=== PATIENT | female | born 1995 | race Caucasian/White ===

== ENCOUNTER 2023-12-28 18:34 | Emergency (ER) | payer OTHER ==
[2023-12-28 18:45] VITALS: RESP 19; TEMP 98.1; BMI 33.1
[2023-12-28] MEDS: LACTATED RINGERS SOLUTION 1000 ML INFUS.BAG IV ONE ×2 (20:00→22:31)
[2023-12-28 20:22] LABS: BASO % 0.9 % (0-2.0); EOS % 0.1 % (0-4.5); HEMATOCRIT 37.7 % (32.4-45.2); LYMPH % 9.9 % (8-40); MCH 30.1 pg (25.7-33.7); MCHC 34.5 g/dl (32.0-36.0); MEAN CELL VOLUME 87.2 fl (80-96); MEAN PLT VOLUME 8.4 fl (7.5-11.1); MONO % 4.7 % (3.8-10.2); NEUT % 84.4 % (42.8-82.8); PLATELET COUNT 306 10^3/uL (134-434); RBC 4.32 M/mm3 (3.60-5.2); WHITE BLOOD COUNT 13.4 K/mm3 (4.0-10.0)
[2023-12-28 20:34] LABS: COCAINE, UR NEGATIVE (NEGATIVE); OPIATES, URI NEGATIVE (NEGATIVE); PHENCYCLIDINE,URINE NEGATIVE (NEGATIVE); URINE BARBITURATES NEGATIVE (NEGATIVE); URINE BENZODIAZEPINES NEGATIVE (NEGATIVE)
[2023-12-28 20:35] LABS: METHADONE, UR NEGATIVE (NEGATIVE)
[2023-12-28 20:38] LABS: URINE AMPHETAMINES NEGATIVE (NEGATIVE)
[2023-12-28 20:43] LABS: EPI CELLS 6 /uL (0-25.1); HYALINE CASTS 0 /uL (0-3.1); PH,URINE 5.5 (5.0-8.0); URINE APPEARANCE CLEAR; URINE BACTERIA 63 /uL (0-1359); URINE BILIRUBIN NEGATIVE (NEGATIVE); URINE COLOR YELLOW; URINE GLUCOSE (UA) NEGATIVE (NEGATIVE); URINE KETONE NEGATIVE (NEGATIVE); URINE LEUK ESTERASE NEGATIVE (NEGATIVE); URINE NITRITE NEGATIVE (NEGATIVE); URINE PROTEIN NEGATIVE (NEGATIVE); URINE RBC 63 /uL (0-23.9); URINE UROBILINOGEN 0.2 mg/dL (0.2-1.0); URINE WBC 8 /uL (0-25.8)
[2023-12-28 20:48] LABS: POTASSIUM 3.8 mmol/L (3.5-5.1)
[2023-12-28 20:49] LABS: CALCIUM 9.2 mg/dL (8.5-10.1)
[2023-12-28 20:50] LABS: ALBUMIN 4.1 g/dl (3.4-5.0); BLOOD UREA NITROGEN 8.3 mg/dL (7-18); MAGNESIUM 1.9 mg/dL (1.8-2.4)
[2023-12-28 20:55] LABS: BILIRUBIN,TOTAL 0.3 mg/dL (0.2-1); TOT PROT 8.1 g/dl (6.4-8.2)
[2023-12-28 22:52] VITALS: BP 122/66; PULSE 110
== END 2023-12-29 00:15 | disposition home or self-care (01) ==
LOC: JERFT 18:34 → JER 18:34
PROC: 3E030GC Introduction of Other Therapeutic Substance into Peripheral Vein, Open Approach (ICD-10-PCS; principal; 2023-12-28)
DX: R00.2 Palpitations (principal); R20.0 Anesthesia of skin; F41.9 Anxiety disorder, unspecified
CPT/HCPCS: 36415; 80053; 80307; 81003; 83655; 83735; 84436; 84443; 84479; 84703; 85025; 93005; 93010; 99284-25

== ENCOUNTER 2023-12-30 14:07 | Emergency (ER) | payer OTHER ==
[2023-12-30 14:19] VITALS: BP 118/92; PULSE 90; RESP 20; TEMP 98; BMI 33.1
== END 2023-12-30 16:20 | disposition home or self-care (01) ==
LOC: JER 14:07
DX: R20.0 Anesthesia of skin (principal); R00.0 Tachycardia, unspecified; F41.9 Anxiety disorder, unspecified
CPT/HCPCS: 99282-25